=== PATIENT | male | born 1945 | race Caucasian/White ===

== ENCOUNTER 2021-08-06 09:58 | Inpatient (IN) ==
[2021-08-06 10:40] LABS: Basophils # 0.1 K/mcL (0.0-0.2); Basophils % 0.5 %; Eosinophils # 0.2 K/mcL (0.0-0.6); Eosinophils % 1.5 %; Hematocrit 41.4 % (37.5-50.1); Hemoglobin 13.9 g/dL (12.9-16.9); Immature Granulocytes % 0.3 % (0-4); Lymphocytes # 2.7 K/mcL (0.6-4.6); Lymphocytes % 23.7 %; Mean Corpuscular HGB Conc 33.6 g/dL (31.6-35.5); Mean Corpuscular Hemoglobin 31.7 pg (28.0-33.3); Mean Corpuscular Volume 94.5 fL (83.0-100.0); Mean Platelet Volume 10.3 fL (9.4-12.4); Monocytes # 1.3 K/mcL (0.0-1.3); Monocytes % 11.3 %; Neutrophils # 7.2 K/mcL (1.6-8.9); Platelet Count 298 K/mcL (140-400); Red Blood Count 4.38 M/mcL (4.19-5.50); Red Cell Distribution Width 14.6 % (11.5-14.5); Segmented Neutrophils % 62.7 %; White Blood Count 11.5 K/mcL (4.3-11.1)
[2021-08-06] MEDS ORDERED: *HR* FentaNYL (PF) 100 MCG/2 ML VIAL IVP ONE (10:47)
[2021-08-06 10:59] LABS: INR 1.1
[2021-08-06] MEDS ORDERED: 0.9 % Sodium Chloride 500 ML ONE (11:09)
[2021-08-06] MEDS ORDERED: Naloxone 0.4 MG/ML INJ IVP PRN (13:41)
[2021-08-06] MEDS ORDERED: Acetaminophen 325 MG TABLET PO PRN (13:41)
[2021-08-06] MEDS ORDERED: *HR* HYDROcodone/Acet 5/325 mg TABLET PO PRN (13:41)
[2021-08-06] MEDS: *HR* OxyCODONE Immed Rel 5 MG TABLET PO PRN ×2 (14:31→20:22)
[2021-08-06] MEDS: Gabapentin 400 MG CAPSULE PO SCH (20:11)
[2021-08-07] MEDS ORDERED: Ondansetron ODT 4 MG TAB.RAPDIS SL PRN (01:53)
[2021-08-07 05:01] LABS: Basophils % 0.3 %; Eosinophils # 0.1 K/mcL (0.0-0.6); Eosinophils % 0.5 %; Hematocrit 39.6 % (37.5-50.1); Hemoglobin 13.1 g/dL (12.9-16.9); Immature Granulocytes % 0.4 % (0-4); Lymphocytes # 1.2 K/mcL (0.6-4.6); Lymphocytes % 8.3 %; Mean Corpuscular HGB Conc 33.1 g/dL (31.6-35.5); Mean Corpuscular Hemoglobin 31.1 pg (28.0-33.3); Mean Corpuscular Volume 94.1 fL (83.0-100.0); Mean Platelet Volume 10.3 fL (9.4-12.4); Monocytes # 1.2 K/mcL (0.0-1.3); Monocytes % 8.1 %; Neutrophils # 12.3 K/mcL (1.6-8.9); Platelet Count 278 K/mcL (140-400); Red Blood Count 4.21 M/mcL (4.19-5.50); Red Cell Distribution Width 14.6 % (11.5-14.5); Segmented Neutrophils % 82.4 %; White Blood Count 14.9 K/mcL (4.3-11.1)
[2021-08-07 05:21] LABS: BUN/Creatinine Ratio 21 (6-26); Blood Urea Nitrogen 20 mg/dL (8-23); Calcium 9.5 mg/dL (8.6-10.3); Carbon Dioxide 25 mEq/L (23-29); Chloride 106 mEq/L (98-107); Glucose 160 mg/dL (70-105); Osmolality,Calculated 290 (280-300); Sodium 137 mEq/L (136-145); eGFR For African Americans > 60 (> 60); eGFR For Non-African Americans > 60 (> 60)
[2021-08-07] MEDS: Gabapentin 300 MG CAPSULE PO SCH ×2 (08:08→12:34)
[2021-08-07] MEDS: Aspirin Enteric Coated 81 MG Tablet PO SCH (08:08)
[2021-08-07] MEDS: Famotidine 20 MG TABLET PO SCH (08:08)
[2021-08-07] MEDS: amLODIPine 5 MG TABLET PO SCH (08:08)
[2021-08-07] MEDS: *HR* OxyCODONE Immed Rel 5 MG TABLET PO PRN ×2 (08:09→21:07)
[2021-08-07] MEDS: Gabapentin 400 MG CAPSULE PO SCH (21:06)
[2021-08-08 06:12] LABS: Hematocrit 40.1 % (37.5-50.1); Hemoglobin 13.3 g/dL (12.9-16.9); Mean Corpuscular HGB Conc 33.2 g/dL (31.6-35.5); Mean Corpuscular Hemoglobin 30.9 pg (28.0-33.3); Mean Platelet Volume 10.5 fL (9.4-12.4); Platelet Count 277 K/mcL (140-400); Red Blood Count 4.31 M/mcL (4.19-5.50); Red Cell Distribution Width 14.6 % (11.5-14.5); White Blood Count 11.4 K/mcL (4.3-11.1)
[2021-08-08 06:55] VITALS: PULSE 57
[2021-08-08 07:08] LABS: BUN/Creatinine Ratio 18 (6-26); Blood Urea Nitrogen 16 mg/dL (8-23); Calcium 9.5 mg/dL (8.6-10.3); Carbon Dioxide 27 mEq/L (23-29); Chloride 106 mEq/L (98-107); Glucose 111 mg/dL (70-105); Osmolality,Calculated 292 (280-300); Potassium 3.7 mEq/L (3.5-5.1); Sodium 140 mEq/L (136-145); eGFR For African Americans > 60 (> 60); eGFR For Non-African Americans > 60 (> 60)
[2021-08-08] MEDS: Gabapentin 300 MG CAPSULE PO SCH ×2 (08:32→11:42)
[2021-08-08] MEDS: Aspirin Enteric Coated 81 MG Tablet PO SCH (08:32)
[2021-08-08] MEDS: Famotidine 20 MG TABLET PO SCH (08:33)
[2021-08-08] MEDS: amLODIPine 5 MG TABLET PO SCH (08:33)
[2021-08-08 10:00] VITALS: BP 144/76; TEMP 98.2; O2SAT 96
== END 2021-08-08 14:18 | disposition home or self-care (01) | DRG 201 ==
LOC: 2NENU 09:58 → RAD 09:58 → 2NENU 14:13 → SUATTDRO 08-07 11:57
PROVIDERS: ADMIT Internal Medicine; ATTEND Family Medicine

== ENCOUNTER 2021-09-11 06:10 | Inpatient (IN) ==
[2021-09-11] MEDS ORDERED: CeFAZolin Syr 2,000MG/20 ML 2,000 MG/20 ML SYRINGE IVPB ONE (06:30)
[2021-09-11] MEDS ORDERED: Ringers Solution, Lactated 1,000 ML IVC SCH (06:30)
[2021-09-11] MEDS ORDERED: *HR* Propofol 200 MG/20 ML VIAL IVP ONE (06:45)
[2021-09-11] MEDS ORDERED: Acetaminophen IV 1,000 MG/100 ML BAG IVPB ONE (07:01)
[2021-09-11] MEDS ORDERED: *HR* Succinylcholine 200 MG/10 ML VIAL IVP ONE (07:04)
[2021-09-11] MEDS ORDERED: Lidocaine -MPF 2% 2 ML VIAL ONE ×2 (07:04→08:34)
[2021-09-11] MEDS ORDERED: Ondansetron 4 MG/2 ML VIAL ONE (07:04)
[2021-09-11] MEDS ORDERED: *HR* Rocuronium Bromide 50 MG/5 ML VIAL ONE ×2 (07:04→08:48)
[2021-09-11] MEDS ORDERED: *HR* Phenylephrine 10 MG/ML VIAL ONE (07:08)
[2021-09-11] MEDS ORDERED: Ondansetron 4 MG/2 ML VIAL IVP PRN (07:11)
[2021-09-11] MEDS ORDERED: Albuterol 2.5 MG/3 ML NEBULIZER IH PRN (07:11)
[2021-09-11] MEDS ORDERED: Albuterol 2.5 MG/3 ML NEBULIZER IH ONE (07:12)
[2021-09-11] MEDS ORDERED: *HR* Midazolam HCl 2 MG/2 ML VIAL ONE (07:15)
[2021-09-11] MEDS ORDERED: *HR* FentaNYL (PF) 100 MCG/2 ML VIAL ONE (07:17)
[2021-09-11] MEDS ORDERED: *HR* HYDROMORPHONE 2 MG/ML VIAL ONE (08:18)
[2021-09-11] MEDS ORDERED: Sugammadex Sodium 200 MG/2 ML VIAL IV ONE (09:13)
[2021-09-11] MEDS: *HR* HYDROmorphone PF 0.5 MG/0.5 ML SYRINGE IVP PRN ×4 (10:16→10:49)
[2021-09-11] MEDS ORDERED: 0.9 % Sodium Chloride 1,000 ML IVC SCH (10:45)
[2021-09-11] MEDS ORDERED: Naloxone 0.4 MG/ML INJ IVP PRN (11:55)
[2021-09-11] MEDS: Ipratropium/Albuterol Neb 3 ML IH SCH ×4 (12:18→23:07)
[2021-09-11] MEDS: 0.9 % Sodium Chloride 1,000 ML IVC SCH (12:22)
[2021-09-11] MEDS: Gabapentin 300 MG CAPSULE PO SCH (12:22)
[2021-09-11] MEDS: Ketorolac 30 MG/ML VIAL IVP SCH ×3 (12:22→23:59)
[2021-09-11] MEDS: *HR* Heparin 5,000 UNIT/ML VIAL SQ SCH ×2 (13:59→21:54)
[2021-09-11] MEDS: *HR* HYDROcodone/Acet 5/325 mg TABLET PO PRN (19:53)
[2021-09-11] MEDS: Gabapentin 400 MG CAPSULE PO SCH (21:54)
[2021-09-11] MEDS: Famotidine 20 MG TABLET PO SCH (21:54)
[2021-09-11] MEDS: Sennosides/Docusate Sodium TABLET PO SCH (21:55)
[2021-09-12] MEDS: 0.9 % Sodium Chloride 1,000 ML IVC SCH
[2021-09-12 01:41] LABS: Hematocrit 39.8 % (37.5-50.1); Hemoglobin 12.9 g/dL (12.9-16.9); Mean Corpuscular HGB Conc 32.4 g/dL (31.6-35.5); Mean Corpuscular Volume 95.7 fL (83.0-100.0); Mean Platelet Volume 10.8 fL (9.4-12.4); Platelet Count 229 K/mcL (140-400); Red Blood Count 4.16 M/mcL (4.19-5.50); Red Cell Distribution Width 14.8 % (11.5-14.5); White Blood Count 14.1 K/mcL (4.3-11.1)
[2021-09-12 02:04] LABS: BUN/Creatinine Ratio 18 (6-26); Blood Urea Nitrogen 17 mg/dL (8-23); Calcium 8.8 mg/dL (8.6-10.3); Carbon Dioxide 24 mEq/L (23-29); Chloride 107 mEq/L (98-107); Glucose 163 mg/dL (70-105); Magnesium 1.9 mg/dL (1.6-2.6); Osmolality,Calculated 291 (280-300); Potassium 4.2 mEq/L (3.5-5.1); Sodium 138 mEq/L (136-145); eGFR For African Americans > 60 (> 60); eGFR For Non-African Americans > 60 (> 60)
[2021-09-12] MEDS: Ipratropium/Albuterol Neb 3 ML IH SCH ×5 (04:08→20:37)
[2021-09-12] MEDS: Ketorolac 30 MG/ML VIAL IVP SCH ×4 (05:17→23:09)
[2021-09-12] MEDS: *HR* Heparin 5,000 UNIT/ML VIAL SQ SCH ×3 (05:18→20:39)
[2021-09-12] MEDS: Aspirin Enteric Coated 81 MG Tablet PO SCH (08:42)
[2021-09-12] MEDS: Famotidine 20 MG TABLET PO SCH ×2 (08:42→20:39)
[2021-09-12] MEDS: Gabapentin 300 MG CAPSULE PO SCH ×2 (08:42→10:37)
[2021-09-12] MEDS: amLODIPine 5 MG TABLET PO SCH (08:43)
[2021-09-12] MEDS: Sennosides/Docusate Sodium TABLET PO SCH ×2 (08:43→20:39)
[2021-09-12] MEDS ORDERED: amLODIPine 5 MG TABLET PO SCH (09:00)
[2021-09-12] MEDS: polyethylene glycoL 3350 17 GM POWD.PACK PO SCH (10:38)
[2021-09-12] MEDS: *HR* HYDROcodone/Acet 5/325 mg TABLET PO PRN (14:33)
[2021-09-12] MEDS: Gabapentin 400 MG CAPSULE PO SCH (20:39)
[2021-09-13] MEDS: Ipratropium/Albuterol Neb 3 ML IH SCH ×7 (00:15→23:57)
[2021-09-13 04:56] LABS: BUN/Creatinine Ratio 22 (6-26); Blood Urea Nitrogen 22 mg/dL (8-23); Calcium 8.9 mg/dL (8.6-10.3); Carbon Dioxide 25 mEq/L (23-29); Chloride 106 mEq/L (98-107); Glucose 132 mg/dL (70-105); Osmolality,Calculated 291 (280-300); Potassium 4.3 mEq/L (3.5-5.1); Sodium 138 mEq/L (136-145); eGFR For African Americans > 60 (> 60); eGFR For Non-African Americans > 60 (> 60)
[2021-09-13] MEDS: *HR* Heparin 5,000 UNIT/ML VIAL SQ SCH ×3 (05:30→22:11)
[2021-09-13] MEDS: Ketorolac 30 MG/ML VIAL IVP SCH ×3 (05:31→18:15)
[2021-09-13] MEDS: Aspirin Enteric Coated 81 MG Tablet PO SCH (08:39)
[2021-09-13] MEDS: Famotidine 20 MG TABLET PO SCH ×2 (08:40→22:10)
[2021-09-13] MEDS: Gabapentin 300 MG CAPSULE PO SCH ×2 (08:40→11:48)
[2021-09-13] MEDS: Sennosides/Docusate Sodium TABLET PO SCH ×2 (08:41→22:10)
[2021-09-13] MEDS: amLODIPine 5 MG TABLET PO SCH (08:41)
[2021-09-13] MEDS: Ondansetron 4 MG/2 ML VIAL IVP PRN ×2 (08:41→14:33)
[2021-09-13] MEDS: polyethylene glycoL 3350 17 GM POWD.PACK PO SCH (08:43)
[2021-09-13] MEDS: Gabapentin 400 MG CAPSULE PO SCH (22:11)
[2021-09-14] MEDS: Ketorolac 30 MG/ML VIAL IVP SCH ×2 (00:02→06:10)
[2021-09-14] MEDS: Ipratropium/Albuterol Neb 3 ML IH SCH ×3 (04:02→11:05)
[2021-09-14] MEDS: *HR* Heparin 5,000 UNIT/ML VIAL SQ SCH (06:11)
[2021-09-14 07:14] VITALS: TEMP 97.6
[2021-09-14] MEDS: polyethylene glycoL 3350 17 GM POWD.PACK PO SCH (08:52)
[2021-09-14] MEDS: Famotidine 20 MG TABLET PO SCH (08:52)
[2021-09-14] MEDS: amLODIPine 5 MG TABLET PO SCH (08:52)
[2021-09-14] MEDS: Aspirin Enteric Coated 81 MG Tablet PO SCH (08:53)
[2021-09-14] MEDS: Sennosides/Docusate Sodium TABLET PO SCH (08:53)
[2021-09-14] MEDS: Gabapentin 300 MG CAPSULE PO SCH (08:54)
[2021-09-14 12:02] VITALS: BP 137/69; PULSE 83; O2SAT 95
== END 2021-09-14 13:05 | disposition home or self-care (01) | DRG 165 ==
LOC: SAMDAY 06:10 → 2NNU 11:53
PROVIDERS: ADMIT Thoracic Surgery (Cardiothoracic Vascular Surgery); ATTEND Thoracic Surgery (Cardiothoracic Vascular Surgery)